=== PATIENT | female | born 1980 | race Caucasian/White ===

== ENCOUNTER 2018-07-12 01:56 | Emergency (ER) | payer OTHER ==
[2018-07-12] MEDS ORDERED: diphenhydrAMINE 50 MG/ML VIAL ONE (02:15)
[2018-07-12] MEDS ORDERED: methylPREDNISolone Sod Succ/PF 125 MG/2 ML VIAL ONE (02:15)
[2018-07-12] MEDS ORDERED: diphenhydrAMINE 12.5 MG/5 ML UDCUP ONE (02:15)
[2018-07-12] MEDS ORDERED: Famotidine In NaCl 20 mg/50 ml Premix Bag ONE (02:21)
[2018-07-12] MEDS ORDERED: methylPREDNISolone Sod Succ/PF 125 MG/2 ML VIAL IVP SCH (02:30)
== END 2018-07-12 03:43 | disposition home or self-care (01) ==
LOC: BURERS 01:56
DX: T78.40XA Allergy, unspecified, initial encounter (principal); E03.9 Hypothyroidism, unspecified
CPT/HCPCS: 96361; 96374; 96375; J1200; J2930